=== PATIENT | female | born 1955 | race Caucasian/White ===

== ENCOUNTER 2021-03-31 06:12 | Outpatient (REF) | payer MEDICARE, SELFPAY ==
[2021-03-31 11:51] LABS: Hemoglobin 14.2 g/dl (12.0-16.0); Mean Corpuscular HGB Conc 32.3 g/dl (31.0-35.0); Mean Corpuscular Hemoglobin 28.9 pg (27.0-33.0); Mean Corpuscular Volume 89.6 fL (80.0-98.0); Mean Platelet Volume 9.8 fL (9.4-12.3); Platelet Count 230 X10*3/uL (160-400); Red Blood Count 4.91 X10*6/uL (4.20-5.50); Red Cell Distribution Width 12.8 % (11.0-16.0); White Blood Count 4.5 X10*3/uL (4.8-10.8)
[2021-03-31 12:06] LABS: Alanine Aminotransferase 12 U/L (0-31); Albumin Level 3.9 g/dL (3.5-5.0); Alkaline Phosphatase 64 U/L (39-117); Anion Gap 12 (12-20); Aspartate Amino Transferase 17 U/L (5-31); Bilirubin Total 0.6 mg/dL (0.0-1.0); Blood Urea Nitrogen 15 mg/dL (9-16); Calcium 9.2 mg/dL (8.4-10.2); Carbon Dioxide 31 mmol/L (22-29); Chloride 104 mmol/L (96-108); Cholesterol 160 mg/dL; Estimated Glomerular Filt Rate > 60; Glucose Fasting 86 mg/dL (60-99); HDL Cholesterol 61 mg/dL; LDL Cholesterol Calculated 89 mg/dl; Sodium 143 mmol/L (135-145); Total Protein 7.1 g/dL (6.5-8.0); Triglycerides 50 mg/dL
[2021-03-31 12:28] LABS: TSH reflex Free T4 1.09 uIU/mL (0.32-4.0); Vitamin D 25-OH Total 41.6 ng/mL (>30)
== END 2021-03-31 06:13 | disposition home or self-care (01) ==
LOC: HO.HMGCLDS 06:12
PROVIDERS: PCP Internal Medicine; Visit Provider Internal Medicine
DX: Z00.00 Encounter for general adult medical examination without abnormal findings (principal); E78.5 Hyperlipidemia, unspecified; R91.8 Other nonspecific abnormal finding of lung field
CPT/HCPCS: 36415; 80053; 80061; 82306; 84443; 85027

== ENCOUNTER 2022-02-09 11:45 | Outpatient (REF) | payer MEDICARE, SELFPAY ==
[2022-02-09 13:45] LABS: MANUAL DIFF FLAG NO
[2022-02-09 13:51] LABS: Basophils Percent Auto 0.4 % (0-2); Eosinophils Absolute Auto 0.1 X10*3/uL (0.0-0.4); Eosinophils Percent Auto 1.9 % (0-4); Hemoglobin 13.9 g/dl (12.0-16.0); Imm Gran Abs Auto 0.01 X10*3/uL (0.00-0.03); Imm Gran Pct Auto 0.1 % (0.0-0.4); Lymphocytes Absolute Auto 1.4 X10*3/uL (1.2-4.9); Lymphocytes Percent Auto 19.9 % (20-40); Mean Corpuscular HGB Conc 33.1 g/dl (31.0-35.0); Mean Corpuscular Hemoglobin 29.4 pg (27.0-33.0); Mean Platelet Volume 10.2 fL (9.4-12.3); Monocytes Absolute Auto 0.6 X10*3/uL (0.1-1.2); Neutrophils Absolute Auto 4.7 x10*3/uL (2.0-8.3); Neutrophils Percent Auto 68.7 % (45-73); Platelet Count 258 X10*3/uL (160-400); Red Blood Count 4.72 X10*6/uL (4.20-5.50); White Blood Count 6.9 X10*3/uL (4.8-10.8)
[2022-02-09 14:18] LABS: Alanine Aminotransferase 14 U/L (0-31); Albumin Level 3.9 g/dL (3.5-5.0); Alkaline Phosphatase 67 U/L (39-117); Anion Gap 10 (12-20); Aspartate Amino Transferase 19 U/L (5-31); Bilirubin Total 0.4 mg/dL (0.0-1.0); Blood Urea Nitrogen 10 mg/dL (9-16); Calcium 9.5 mg/dL (8.4-10.2); Carbon Dioxide 33 mmol/L (22-29); Chloride 103 mmol/L (96-108); Estimated Glomerular Filt Rate > 60; Glucose Random 97 mg/dL (60-115); Potassium 4.1 mmol/L (3.3-5.1); Sodium 142 mmol/L (135-145); Total Protein 6.9 g/dL (6.5-8.0)
[2022-02-09 14:38] LABS: TSH reflex Free T4 0.62 uIU/mL (0.32-4.0)
== END 2022-02-09 11:46 | disposition home or self-care (01) ==
LOC: HO.HMGCLDS 11:45
PROVIDERS: PCP Internal Medicine; Visit Provider Internal Medicine
DX: R19.7 Diarrhea, unspecified (principal)
CPT/HCPCS: 36415; 80053; 84443; 85025

== ENCOUNTER 2022-02-15 09:34 | Outpatient (REF) | payer MEDICARE, SELFPAY ==
[2022-02-15 12:43] LABS: CDiff Gene PCR NEGATIVE (Negative)
[2022-02-15 13:11] LABS: Leukocytes Stool Qualitative FEW: < 2/OIF (NEGATIVE)
== END 2022-02-15 09:35 | disposition home or self-care (01) ==
LOC: HO.HMGCLDS 09:34
PROVIDERS: PCP Internal Medicine; Visit Provider Internal Medicine
DX: R19.7 Diarrhea, unspecified (principal)
CPT/HCPCS: 87493; 87507; 89055

== ENCOUNTER 2022-02-17 09:21 | Outpatient (REF) | payer MEDICARE, SELFPAY ==
[2022-02-17 13:29] LABS: Campylobacter Not Detected (Not Detect.); Cryptosporidium Not Detected (Not Detect.); E. coli EAEC Not Detected (Not Detect.); E. coli EPEC Not Detected (Not Detect.); E. coli ETEC Not Detected (Not Detect.); E. coli STEC Not Detected (Not Detect.); Plesiomonas shigelloides Not Detected (Not Detect.); Salmonella Not Detected (Not Detect.); Shigella sp./EIEC Not Detected (Not Detect.); Vibrio Not Detected (Not Detect.); Vibrio Cholerae Not Detected (Not Detect.); Yersinia enterocolitica Not Detected (Not Detect.)
[2022-02-17 13:30] LABS: Adenovirus F 40/41 Not Detected (Not Detect.); Astrovirus Not Detected (Not Detect.); Cyclospora cayetanensis Not Detected (Not Detect.); Entamoeba histolytica Not Detected (Not Detect.); Giardia lamblia Not Detected (Not Detect.); Norovirus GI/GII Not Detected (Not Detect.); Rotavirus A Not Detected (Not Detect.); Sapovirus Not Detected (Not Detect.)
== END 2022-02-17 09:22 | disposition home or self-care (01) ==
LOC: HO.HMGCLDS 09:21
PROVIDERS: PCP Internal Medicine; Visit Provider Internal Medicine
DX: R19.7 Diarrhea, unspecified (principal)
CPT/HCPCS: 87507

== ENCOUNTER 2022-11-23 08:21 | Outpatient (AMB) | payer MEDICARE, SELFPAY ==
[2022-11-23 08:32] VITALS: BP 108/64; PULSE 67; O2SAT 98; BMI 19.6
--- NOTE | 2022-11-23 08:32 | A.OFFPC_ITS ---
Vital Signs 11/23/22 08:32 Height 5 ft 4 in Weight 114 lb BMI 19.6 BP 108/64 Blood Pressure Location Lt brachial Position Sitting Pulse 67 Pulse Source Pulse Oximeter Pulse Oximetry (%) 98 Oxygen Delivery Method Room Air Intake Visit Reasons: Follow Up GI Intake Note: Pt is here today for a follow up visit. Pt states that she has been having GI issues. Pt states that she lost 20lbs since last time she was here. Allergies No Known Allergies Allergy (Verified 11/23/22 08:38) Medication List - Last Reconciled 11/23/22 by Betsy Desir MD acyclovir 5% 1 appl topical 6XD 7 days atorvastatin 20 mg PO DAILY cholecalciferol (vitamin D3) 50 mcg PO DAILY estradiol (Imvexxy Maintenance Pack) 10 mcg vaginal 2XW [fiber PO] flu vac 2019 [id number](PF) 60 mcg (15 mcg x 4)/0.5 mL mL IM pneumococcal 23-hali ps vaccine mL IM sertraline 50 mg PO DAILY [tumeric PO] Tobacco use date assessed: 11/23/22 Fall risk assessment: No Falls in past year Last assessed Fall Risk: 11/23/22 Dental Screening Dental Screen Date: 11/23/22 Did you have a dental visit in the last 12 months?: Yes Did you have a dental problem in the last 6 months where you did not have access to dental care?: No Was dental information given to patient?: Patient has dentist HPI Follow Up GI 2 HPI Details Patient presents for the follow-up. She complains of chronic diarrhea and had extensive GI workup including colonoscopy in June which showed 3 small polyps but otherwise was negative. Patient tried different IBS medications including dicyclomine, Levsinex without significant change. Patient has been under lot of stress because of her daughter suffers from MS and patient has been visiting her at least 3 times a week. She denies depression insomnia but has been eating only 2 meals a day and lost 15 lb in last 6 months. [facility] Medical History (Updated 11/23/22 @ 10:03 by Betsy Desir MD) Depression Hyperlipidemia Annual physical exam Atrophic vaginitis Psoriasis Osteopenia History of mammogram Lung nodules Surgical History (Updated 11/23/22 @ 10:07 by Betsy Desir MD) H/O colonoscopy No pertinent past surgical history Family History Father Diabetes mellitus Sister Mouth cancer Social History Housing: House Alcohol intake: never Patient Tobacco Use Status: Former Tobacco user Quit Date: 2006 e-Cigarette/Vaping Use: Never Used Current occupational status: retired Cognitive needs: No Hearing needs: No Vision needs: Yes Questionnaire Thrive Questionnaire Date Thrive assessed: 02/09/22 AUDIT C Alcohol Use Questionnaire (AUDIT-C) 1. How often do you have a drink containing alcohol?: Never 3. How often do you have six or more drinks on one occasion?: Never Total Score: 0 INOCENTE-7 AMB Questionnaire INOCENTE-7 Date INOCENTE - 7 assessed: 02/09/22 Source: Developed by Drs. Smith Roblero, Mariya Rodriguez, Gary Cheung and colleagues, with an educational mary jane from [employer]. Review of Systems Const All systems reviewed & are unremarkable except as noted in HPI and below Reports no additional complaints Eyes Reports no additional complaints ENT Reports no additional complaints Card Reports no additional complaints Resp Reports no additional complaints GI Reports no additional complaints Reports no additional complaints Musc Reports no additional complaints Physical exam (Primary Care) Vital Signs: Last Vital Signs Pulse 67 11/23/22 08:32 BP 108/64 11/23/22 08:32 Pulse Ox 98 11/23/22 08:32 Oxygen Delivery Method Room Air 11/23/22 08:32 BMI result Body Mass Index 19.6 Tobacco/Smoking Status: Tobacco use Status Tobacco use date assessed 11/23/22 11/23/22 08:43 Patient Tobacco Use Status Former Tobacco user 11/23/22 08:43 e-Cigarette/Vaping Use Never Used 11/23/22 08:43 Thrive Assessment: Date of Thrive Assessment Date Thrive assessed 02/09/22 11/23/22 08:43 Const General: no acute distress HENMT Head: Yes normal to inspection Face and sinus: Yes normal facial exam Eyes General: appearance normal, both eyes and all related structures Resp Effort & Inspection: normal respiratory effort Auscultation: clear to auscultation bilaterally Cardio Rhythm: regular rhythm Heart sounds: S1 normal heart sound present and S2 normal heart sound present GI Inspection: Yes normal to inspection Palpation (GI): Soft to palpation Percussion: Yes normal to percussion Auscultation: normal bowel sounds Assessment and Plan Assessment & Plan (1) Depression: Code(s): F32.9 - Major depressive disorder, single episode, unspecified Plan: Continue Zoloft (2) Hyperlipidemia: Code(s): E78.5 - Hyperlipidemia, unspecified Plan: Continue statin, return for fasting labs (3) Diarrhea: Comment: negative GI w/u , tried different IBS meds without relief Code(s): R19.7 - Diarrhea, unspecified Plan: Patient will try probiotics (4) Lung nodules: Comment: screen CT 01/2020 Hallie small nodules, recommended low dose CT annually Code(s): R91.8 - Other nonspecific abnormal finding of lung field Plan: Referred to lung cancer screening [place] [facility] [place], patient used to get a CT at [place] but has not had one for a few years (5) Weight loss: Code(s): R63.4 - Abnormal weight loss Plan: Increase caloric intake, and well-balanced diet discussed with the patient. she follow-up in 1 month to monitor her weight Orders: Orders Comprehensive [place]. Panel Fast Today E78.5 - Hyperlipidemia, unspecified, F32.9 - Major depressive disorder, single episode, unspecified, R19.7 - Diarrhea, unspecified Complete Blood Count Auto Diff Today E78.5 - Hyperlipidemia, unspecified, F32.9 - Major depressive disorder, single episode, unspecified, R19.7 - Diarrhea, unspecified Lipid Panel Today E78.5 - Hyperlipidemia, unspecified, F32.9 - Major depressive disorder, single episode, unspecified, R19.7 - Diarrhea, unspecified TSH reflex Free T4 Today E78.5 - Hyperlipidemia, unspecified, F32.9 - Major depressive disorder, single episode, unspecified, R19.7 - Diarrhea, unspecified Referrals Thoracic Surgery Referral R91.8 - Other nonspecific abnormal finding of lung field Medications: Refilled acyclovir 5% 1 appl topical 6XD 7 days 30 grams 2RF Coding Level of Care Code Est Pt Level 4 (04429) Diagnoses Depression F32.9 Hyperlipidemia E78.5 Diarrhea R19.7 Lung nodules R91.8 Weight loss R63.4
== END 2022-11-23 09:14 | disposition home or self-care (01) ==
PROVIDERS: PCP Internal Medicine; Visit Provider Internal Medicine
DX: E78.5 Hyperlipidemia, unspecified (principal); F32.9 Major depressive disorder, single episode, unspecified; R19.7 Diarrhea, unspecified; R91.8 Other nonspecific abnormal finding of lung field; R63.4 Abnormal weight loss
CPT/HCPCS: 99214

== ENCOUNTER 2022-11-24 07:26 | Outpatient (REF) | payer MEDICARE, SELFPAY ==
[2022-11-24 11:19] LABS: MANUAL DIFF FLAG NO
[2022-11-24 11:23] LABS: Basophils Percent Auto 0.5 % (0-2); Eosinophils Absolute Auto 0.1 X10*3/uL (0.0-0.4); Eosinophils Percent Auto 2.5 % (0-4); Hematocrit 42.5 % (37.0-47.0); Hemoglobin 13.6 g/dl (12.0-16.0); Imm Gran Abs Auto 0.01 X10*3/uL (0.00-0.03); Imm Gran Pct Auto 0.2 % (0.0-0.4); Lymphocytes Absolute Auto 0.9 X10*3/uL (1.2-4.9); Lymphocytes Percent Auto 15.8 % (20-40); Mean Corpuscular Hemoglobin 28.9 pg (27.0-33.0); Mean Corpuscular Volume 90.2 fL (80.0-98.0); Mean Platelet Volume 9.9 fL (9.4-12.3); Monocytes Absolute Auto 0.5 X10*3/uL (0.1-1.2); Monocytes Percent Auto 9.4 % (2-11); Neutrophils Percent Auto 71.6 % (45-73); Platelet Count 232 X10*3/uL (160-400); Red Blood Count 4.71 X10*6/uL (4.20-5.50); Red Cell Distribution Width 13.4 % (11.0-16.0); White Blood Count 5.6 X10*3/uL (4.8-10.8)
[2022-11-24 11:46] LABS: Alanine Aminotransferase 18 U/L (0-31); Albumin Level 3.9 g/dL (3.5-5.0); Alkaline Phosphatase 67 U/L (39-117); Anion Gap 13 (12-20); Aspartate Amino Transferase 21 U/L (5-31); Bilirubin Total 0.6 mg/dL (0.0-1.0); Blood Urea Nitrogen 10 mg/dL (9-16); Calcium 9.3 mg/dL (8.4-10.2); Carbon Dioxide 30 mmol/L (22-29); Chloride 104 mmol/L (96-108); Cholesterol 157 mg/dL (<200); Estimated Glomerular Filt Rate > 60; Glucose Fasting 79 mg/dL (60-99); HDL Cholesterol 53 mg/dL (>40); LDL Cholesterol Calculated 90 mg/dL (<100); Potassium 3.9 mmol/L (3.3-5.1); Sodium 143 mmol/L (135-145); Total Protein 7.3 g/dL (6.5-8.0); Triglycerides 72 mg/dL (<150)
== END 2022-11-24 07:27 | disposition home or self-care (01) ==
LOC: HO.HMGCLDS 07:26
PROVIDERS: PCP Internal Medicine; Visit Provider Internal Medicine
DX: R19.7 Diarrhea, unspecified (principal); F32.9 Major depressive disorder, single episode, unspecified; E78.5 Hyperlipidemia, unspecified
CPT/HCPCS: 36415; 80053; 80061; 84443; 85025

== ENCOUNTER 2022-12-21 09:58 | Outpatient (AMB) | payer MEDICARE, SELFPAY ==
--- NOTE | 2022-12-21 09:59 | MHC.PC.OV ---
Vital Signs 12/21/22 10:04 Height 5 ft 4 in Weight 114 lb BMI 19.6 BP 100/60 Blood Pressure Location Lt brachial Position Sitting Pulse 72 Pulse Source Pulse Oximeter Pulse Oximetry (%) 97 Oxygen Delivery Method Room Air Intake Visit Reasons: 1M follow up Intake Note: Pt is here today for her 1 month f/u Allergies No Known Allergies Allergy (Verified 12/21/22 10:00) Medication List - Last Reconciled 12/21/22 by Betsy Desir MD atorvastatin 20 mg PO DAILY cholecalciferol (vitamin D3) 50 mcg PO DAILY estradiol (Imvexxy Maintenance Pack) 10 mcg vaginal 2XW [fiber PO] sertraline 50 mg PO DAILY [tumeric PO] Tobacco use date assessed: 12/21/22 Fall risk assessment: No Falls in past year Last assessed Fall Risk: 12/21/22 Dental Screening Dental Screen Date: 12/21/22 Did you have a dental visit in the last 12 months?: Yes Did you have a dental problem in the last 6 months where you did not have access to dental care?: No Was dental information given to patient?: Patient has dentist HPI 1M follow up HPI Details Pt presents for f/u weight loss. Weight has been stable and pt reports good appetite and controlled anxiety on Zoloft. chronic diarrhea resolved on probiotics. [facility] Medical History Depression Hyperlipidemia Annual physical exam Atrophic vaginitis Psoriasis Osteopenia History of mammogram Lung nodules Surgical History H/O colonoscopy No pertinent past surgical history Family History Father Diabetes mellitus Sister Mouth cancer Social History Housing: House Alcohol intake: never Patient Tobacco Use Status: Former Tobacco user Quit Date: 2006 e-Cigarette/Vaping Use: Never Used Current occupational status: retired Cognitive needs: No Hearing needs: No Vision needs: Yes Questionnaire PHQ-9 Over the last 2 weeks, how often have you been bothered by any of the following problems? 1. Little interest or pleasure in doing things: not at all 2. Feeling down, depressed, or hopeless: not at all 3. Trouble falling or staying asleep, or sleeping too much: not at all 4. Feeling tired or having little energy: not at all 5. Poor appetite or overeating: not at all 6. Feeling bad about yourself - or that you are a failure or have let yourself or your family down: not at all 7. Trouble concentrating on things, such as reading the newspaper or watching television: not at all 8. Moving or speaking so slowly that other people could have noticed. Or the opposite - being so fidgety or restless that you have been moving around a lot more than usual: not at all 9. Thoughts that you would be better off or of hurting yourself in some way: not at all Total score: 0 Source: Developed by Drs. Smith Roblero, Mariya Rodriguez, Gary Cheung and colleagues, with an educational mary jane from [employer]. Thrive Questionnaire Date Thrive assessed: 12/21/22 I am a: Patient What is your living situation today?: I have a steady place to live Within the past 12 months, did the food you bought not last and you didn't have the money to get more?: Never true Within the past 12 months, did you worry whether your food would run out before you got money to buy more?: Never true Do you have trouble paying for medicines?: No Do you have trouble getting transportation to medical appointments?: No Do you have trouble paying your heating and electricity bill?: No Do you have trouble taking care of your child, family member or friend?: No Do you have trouble with day-to-day activities such as bathing, preparing meals, shopping, managing finances, etc.?: No Are you currently unemployed and looking for a job?: No Are you interested in more education?: No INOCENTE-7 AMB Questionnaire INOCENTE-7 Date INOCENTE - 7 assessed: 12/21/22 Feeling nervous, anxious, or on edge: 0 = Not at all Not being able to stop or control worryin = Not at all Worrying too much about different things: 0 = Not at all Trouble relaxin = Not at all Being so restless that it is hard to sit still: 0 = Not at all Becoming easily annoyed or irritable: 0 = Not at all Feeling afraid as if something awful might happen: 0 = Not at all Total INOCENTE-7 score (0-4 normal; 5-9 mild; 10-14 moderate; 15-21 severe): 0 Source: Developed by Drs. Smith Roblero, Mariya Rodriguez, Gary Cheung and colleagues, with an educational mary jane from [employer]. Review of Systems Const All systems reviewed & are unremarkable except as noted in HPI and below Reports no additional complaints Eyes Reports no additional complaints ENT Reports no additional complaints Card Reports no additional complaints Resp Reports no additional complaints GI Reports no additional complaints Reports no additional complaints Physical exam (Primary Care) Vital Signs: Last Vital Signs Pulse 72 12/21/22 10:04 BP 100/60 12/21/22 10:04 Pulse Ox 97 12/21/22 10:04 Oxygen Delivery Method Room Air 12/21/22 10:04 BMI result Body Mass Index 19.6 Tobacco/Smoking Status: Tobacco use Status Tobacco use date assessed 12/21/22 12/21/22 10:01 Patient Tobacco Use Status Former Tobacco user 12/21/22 10:01 e-Cigarette/Vaping Use Never Used 12/21/22 10:01 PHQ-9: PHQ-9 Score PHQ-9: Total score 0 12/21/22 10:59 Thrive Assessment: Date of Thrive Assessment Date Thrive assessed 12/21/22 12/21/22 10:08 Const General: no acute distress HENMT Head: Yes normal to inspection Eyes General: appearance normal, both eyes and all related structures Resp Effort & Inspection: normal respiratory effort Auscultation: clear to auscultation bilaterally Cardio Rhythm: regular rhythm Heart sounds: S1 normal heart sound present and S2 normal heart sound present GI Inspection: Yes normal to inspection Palpation (GI): Soft to palpation Percussion: Yes normal to percussion Auscultation: normal bowel sounds Assessment and Plan Assessment & Plan (1) Hyperlipidemia: Code(s): E78.5 - Hyperlipidemia, unspecified Plan: cont statin (2) Annual physical exam: Code(s): Z00.00 - Encounter for general adult medical examination without abnormal findings (3) Depression: Code(s): F32.9 - Major depressive disorder, single episode, unspecified Plan: cont Zoloft Orders: Orders Comprehensive [place]. Panel Fast 6 Months E78.5 - Hyperlipidemia, unspecified, F32.9 - Major depressive disorder, single episode, unspecified, Z00.00 - Encounter for general adult medical examination without abnormal findings Complete Blood Count Auto Diff 6 Months E78.5 - Hyperlipidemia, unspecified, F32.9 - Major depressive disorder, single episode, unspecified, Z00.00 - Encounter for general adult medical examination without abnormal findings Lipid Panel 6 Months E78.5 - Hyperlipidemia, unspecified, F32.9 - Major depressive disorder, single episode, unspecified, Z00.00 - Encounter for general adult medical examination without abnormal findings Coding Level of Care Code Est Pt Level 3 (40485) Diagnoses Hyperlipidemia E78.5 Annual physical exam Z00.00 Depression F32.9
[2022-12-21 10:04] VITALS: BP 100/60; PULSE 72; O2SAT 97; BMI 19.6
== END 2022-12-21 11:09 | disposition home or self-care (01) ==
PROVIDERS: PCP Internal Medicine; Visit Provider Internal Medicine
DX: E78.5 Hyperlipidemia, unspecified (principal); F32.9 Major depressive disorder, single episode, unspecified
CPT/HCPCS: 99213